=== PATIENT | female | born 1955 | race Caucasian/White ===

== ENCOUNTER 2022-02-17 08:38 | Outpatient (CLI) | payer MEDICARE, BC ==
[2022-02-17] MEDS ORDERED: Magnevist 469MG/ML 20 ML VIAL ONE (09:29)
== END 2022-02-17 08:39 | disposition home or self-care (01) ==
LOC: CSHMRI 08:38
PROVIDERS: ATTEND Otolaryngology
DX: H90.3 Sensorineural hearing loss, bilateral (principal)
CPT/HCPCS: 70553; 82565